=== PATIENT | male | born 1985 | race American Indian/Alaskan Native ===

== ENCOUNTER 2018-03-11 04:37 | Emergency (ER) | payer SELFPAY ==
--- NOTE | 2018-03-11 05:27 | XRay Report ---
FINAL REPORT PROCEDURE: XR WRIST 2V RT TECHNIQUE: RIGHT wrist radiographs, AP and lateral views. HISTORY: S/P fall right wrist painful and swelling COMPARISON: No prior studies are available for comparison. FINDINGS: Fracture(s)and/or Dislocation(s): There is a 3 millimeter density dorsal to the carpal bones in the lateral view which could be a triquetrum old chip fracture. Alignment: Normal. Joint space(s): Normal. Soft tissues: There is dorsal soft tissue swelling. Bone mineralization: Normal. Foreign bodies: None. IMPRESSION: There is a 3 millimeter density dorsal to the carpal bones in the lateral view which could be a triquetrum old chip fracture. There is no joint dislocation. There is dorsal soft tissue swelling.
[2018-03-11] MEDS ORDERED: MOTRIN PO ONE (06:58)
--- NOTE | 2018-03-11 07:02 | Emergency Department Report ---
HPI - General Chief Complaint: Extremity Injury, Upper Time Seen by Provider: 03/11/18 06:58 - HPI HPI: Room 30 The patient is a 32-year-old male presenting with a chief complaint of right wrist pain. The patient states approximately 2 weeks ago while skateboarding he fell injuring his right wrist. Patient states he was hurt but he did not seek medical attention. The patient states yesterday while working he again fell and broke his fall with his right hand and reinjured the right wrist. Patient states he awakened this morning with significant pain. Location: Right wrist Duration: [See above] Quality: Pain Severity: Moderate Modifying factors: [see above] Context: [see above] Mode of transportation: The patient drove himself to the emergency department and there are no visitors present ED Past Medical Hx - Past Medical History Previous Medical History?: Yes Hx Seizures: Yes Hx Psychiatric Treatment: Yes (bipolar/ schizophrenia) - Surgical History Past Surgical History?: No - Family History Family history: no significant - Social History Smoking Status: Never Smoker Substance Use Type: None (denies illicit drug use) - Medications Home Medications: Home Medications Medication Instructions Recorded Confirmed Last Taken Type levETIRAcetam [Keppra] 750 mg PO BID 06/26/13 10/12/15 Unknown History HYDROcodone/APAP 5-325 [[place] 1 - 2 each PO Q6HR PRN #14 tablet 03/11/18 Unknown Rx 5/325] Ibuprofen [Motrin 800 MG tab] 800 mg PO Q8HR PRN #20 tablet 03/11/18 Unknown Rx ED Review of Systems ROS: Stated complaint: ARM PAIN Other details as noted in HPI Constitutional: no symptoms reported Eyes: denies: eye pain ENT: denies: throat pain Respiratory: no symptoms reported Cardiovascular: denies: chest pain Endocrine: no symptoms reported Gastrointestinal: denies: abdominal pain Genitourinary: denies: dysuria Musculoskeletal: arthralgia Neurological: denies: headache Physical Exam - Physical Exam Vital Signs: Vital Signs 03/11/18 04:42 Temperature 98.1 F Pulse Rate 64 Respiratory 16 Rate Blood Pressure 123/74 O2 Sat by Pulse 97 Oximetry Physical Exam: GENERAL: The patient is well-developed well-nourished male sitting in chair not appearing to be in acute distress. [] HEENT: Normocephalic. Atraumatic. Extraocular motions are intact. Patient has moist mucous membranes. NECK: Trachea midline CHEST/LUNGS: There is no respiratory distress noted. HEART/CARDIOVASCULAR: Regular. There is no tachycardia. 2+ right radial pulse SKIN: There is no rash. There is no edema. There is no diaphoresis. NEURO: The patient is awake, alert, and oriented. The patient is cooperative. The patient has no focal neurologic deficits. The patient has normal speech and gait. MUSCULOSKELETAL: There is tenderness to the dorsum of the right wrist. There is no snuffbox tenderness ED Course Vital Signs 03/11/18 04:42 Temperature 98.1 F Pulse Rate 64 Respiratory 16 Rate Blood Pressure 123/74 O2 Sat by Pulse 97 Oximetry ED Medical Decision Making - Radiology Data Radiology results: report reviewed (right wrist x-ray), image reviewed (right wrist x-ray) interpreted by me: Right wrist x-ray-no gross fracture seen. Possible triquetral chip fracture Findings [facility] [address] [place] [address] XRay Report Signed Patient: LUIS BURRIS MR#: [id number] : 1985 Acct:[id number] Age/Sex: 32 / M ADM Date: 03/11/18 Loc: ED Attending Dr: Ordering Physician: ZOILA KO MD Date of Service: 03/11/18 Procedure(s): XR wrist 2V RT Accession Number(s): [id number] cc: ZOILA KO MD Fluoro Time In Minutes: FINAL REPORT PROCEDURE: XR WRIST 2V RT TECHNIQUE: RIGHT wrist radiographs, AP and lateral views. HISTORY: S/P fall right wrist painful and swelling COMPARISON: No prior studies are available for comparison. FINDINGS: Fracture(s)and/or Dislocation(s): There is a 3 millimeter density dorsal to the carpal bones in the lateral view which could be a triquetrum old chip fracture. Alignment: Normal. Joint space(s): Normal. Soft tissues: There is dorsal soft tissue swelling. Bone mineralization: Normal. Foreign bodies: None. IMPRESSION: There is a 3 millimeter density dorsal to the carpal bones in the lateral view which could be a triquetrum old chip fracture. There is no joint dislocation. There is dorsal soft tissue swelling. Transcribed By: CO Dictated By: BETHANY MURCIA MD Electronically Authenticated By: BETHANY MURCIA MD Signed Date/Time: 03/11/18525 DD/ 5 TD/TT: 03/11/18525 - Differential Diagnosis scaphoid fracture, carpal fracture Critical care attestation.: If time is entered above; I have spent that time in minutes in the direct care of this critically ill patient, excluding procedure time. ED Disposition Clinical Impression: Triquetral chip fracture, Acute pain of right wrist Disposition: - TO HOME OR SELFCARE Is pt being admited?: No Does the pt Need Aspirin: No Condition: Stable Instructions: Wrist Fracture in Adults (ED) Additional Instructions: Return to the emergency department immediately should you develop worsening symptoms, fever, inability to tolerate food or liquid or any other concerns. Prescriptions: HYDROcodone/APAP 5-325 [[place] 5/325] 1 - 2 each PO Q6HR PRN #14 tablet PRN Reason: Pain Ibuprofen [Motrin 800 MG tab] 800 mg PO Q8HR PRN #20 tablet PRN Reason: Pain, Moderate (4-6) Referrals: PRIMARY CARE, [Primary Care Provider] - 3-5 Days TRU MATTHEWS MD [Staff Physician] - 3-5 Days (Dr. Matthews is an orthopedic surgeon. Please follow up with him for further evaluation) Time of Disposition: 07:03
[2018-03-11 07:21] VITALS: BP 118/74
== END 2018-03-11 07:20 | disposition home or self-care (01) ==
LOC: ED 04:37
DX: S62.114A Nondisplaced fracture of triquetrum [cuneiform] bone, right wrist, initial encounter for closed fracture (principal); F32.9 Major depressive disorder, single episode, unspecified; F20.9 Schizophrenia, unspecified; Z91.013 Allergy to seafood; W19.XXXA Unspecified fall, initial encounter; Y93.51 Activity, roller skating (inline) and skateboarding; Y92.89 Other specified places as the place of occurrence of the external cause; Y99.8 Other external cause status
CPT/HCPCS: 99284

== ENCOUNTER 2019-03-26 19:33 | Emergency (ER) | payer SELFPAY ==
[2019-03-26 20:08] VITALS: BP 126/84
--- NOTE | 2019-03-26 22:00 | Emergency Department Report ---
ED General Adult HPI - General Chief complaint: Skin/Abscess/Foreign Body Stated complaint: skin abscess Time Seen by Provider: 03/26/19 21:56 Source: patient Mode of arrival: Ambulatory Limitations: No Limitations - History of Present Illness Initial comments: 33yo BM states that he has a boil, facial tenderness, and swelling due to an infected pimple on the R side of his face x several days. -: Gradual Location: face Radiation: non-radiation Severity scale (0 -10): 4 Quality: aching Consistency: intermittent Improves with: none Worsens with: none Associated Symptoms: denies other symptoms Treatments Prior to Arrival: none - Related Data Home Medications Medication Instructions Recorded Confirmed Last Taken levETIRAcetam [Keppra] 750 mg PO BID 06/26/13 10/12/15 Unknown Previous Rx's Medication Instructions Recorded Last Taken Type HYDROcodone/APAP 5-325 [[place] 1 - 2 each PO Q6HR PRN #14 tablet 03/11/18 Unknown Rx 5/325] Ibuprofen [Motrin 800 MG tab] 800 mg PO Q8HR PRN #20 tablet 03/11/18 Unknown Rx Clindamycin [Clindamycin CAP] 300 mg PO TID 10 Days #30 capsule 03/26/19 Unknown Rx Allergies Allergy/AdvReac Type Severity Reaction Status Date / Time shellfish derived Allergy Swelling Verified 06/26/13 08:12 ED Review of Systems ROS: Stated complaint: TOOTHACHE Other details as noted in HPI Constitutional: no symptoms reported Eyes: denies: eye pain ENT: denies: ear pain, throat pain Respiratory: denies: cough, orthopnea Cardiovascular: denies: chest pain, palpitations, dyspnea on exertion Gastrointestinal: denies: abdominal pain, nausea, vomiting Genitourinary: denies: urgency, dysuria Musculoskeletal: denies: back pain, joint swelling Skin: lesions Neurological: denies: headache, weakness Psychiatric: denies: anxiety, depression Hematological/Lymphatic: denies: easy bleeding, easy bruising, swollen glands ED Past Medical Hx - Past Medical History Previous Medical History?: Yes Hx Hypertension: No Hx CVA: No Hx Heart Attack/AMI: No Hx Congestive Heart Failure: No Hx Diabetes: No Hx Deep Vein Thrombosis: No Hx Pulmonary Embolism: No Hx GERD: No Hx Liver Disease: No Hx Renal Disease: No Hx of Cancer: No Hx Sickle Cell Disease: No Hx Arthritis: No Hx Headaches / Migraines: No Hx Seizures: Yes Hx Psychiatric Treatment: Yes (bipolar/ schizophrenia- pt denies at 03/26/2019 appt) - Social History Smoking Status: Never Smoker Substance Use Type: Alcohol - Medications Home Medications: Home Medications Medication Instructions Recorded Confirmed Last Taken Type levETIRAcetam [Keppra] 750 mg PO BID 06/26/13 10/12/15 Unknown History HYDROcodone/APAP 5-325 [[place] 1 - 2 each PO Q6HR PRN #14 tablet 03/11/18 Unknown Rx 5/325] Ibuprofen [Motrin 800 MG tab] 800 mg PO Q8HR PRN #20 tablet 03/11/18 Unknown Rx Clindamycin [Clindamycin CAP] 300 mg PO TID 10 Days #30 capsule 03/26/19 Unknown Rx ED Physical Exam - General Limitations: No Limitations General appearance: alert, in no apparent distress - Head Head exam: Present: atraumatic, normocephalic - Eye Eye exam: Present: normal appearance, PERRL, EOMI - ENT ENT exam: Present: normal exam, normal orophraynx - Neck Neck exam: Present: normal inspection, full ROM - Respiratory Respiratory exam: Present: normal lung sounds bilaterally, respiratory distress - Cardiovascular Cardiovascular Exam: Present: regular rate, normal rhythm, normal heart sounds - GI/Abdominal GI/Abdominal exam: Present: soft. Absent: distended, tenderness - Rectal Rectal exam: Present: deferred - Extremities Exam Extremities exam: Present: normal inspection, full ROM - Back Exam Back exam: Present: normal inspection, full ROM - Neurological Exam Neurological exam: Present: alert, altered, oriented X3 - Psychiatric Psychiatric exam: Present: normal affect, normal mood - Skin Skin exam: Present: other (inflamed, erythematous, and warm papule on the R facial cheek) ED Course Vital Signs 03/26/19 20:05 Temperature 97.4 F L Pulse Rate 79 Respiratory 18 Rate Blood Pressure 126/84 O2 Sat by Pulse 98 Oximetry ED Medical Decision Making - Medical Decision Making 33yo BM states that he has a boil, facial tenderness, and swelling due to an infected pimple on the R side of his face x several days. Pt was explained that his R facial cheek swelling is due to a cellulitis. He was instructed to take antibiotics as directed and to apply warm wash cloth twice a day for 15-20 min intervals. Pt verbalized understanding and agreed with the plan of care. Pt was further instructed f/u with PCP and to see ER as needed Critical care attestation.: If time is entered above; I have spent that time in minutes in the direct care of this critically ill patient, excluding procedure time. ED Disposition Clinical Impression: Cellulitis and abscess of face Disposition: DC-01 TO HOME OR SELFCARE Is pt being admited?: No Does the pt Need Aspirin: No Condition: Stable Additional Instructions: Pt was instructed to take antibiotics as directed and to apply warm wash cloth twice a day for 15-20 min intervals. Pt verbalized understanding and agreed with the plan of care. Pt was further instructed f/u with PCP and to see ER as needed Prescriptions: Clindamycin [Clindamycin CAP] 300 mg PO TID 10 Days #30 capsule [facility]: [facility] - 3-5 Days Time of Disposition: 22:07 Print Language: ROMANSH
== END 2019-03-26 22:20 | disposition home or self-care (01) ==
LOC: ED 19:33
DX: L03.211 Cellulitis of face (principal); F20.9 Schizophrenia, unspecified; F31.9 Bipolar disorder, unspecified; Z91.013 Allergy to seafood; Z79.899 Other long term (current) drug therapy